=== PATIENT | male | born 1990 | race Caucasian/White ===

== ENCOUNTER 2024-10-31 09:25 | Emergency (ER) | payer SELFPAY ==
[~2024-10-31] VITALS: Ht 188 cm; Wt 111.0 kg
[2024-10-31 10:17] VITALS: BP 129/90
[2024-10-31] MEDS ORDERED: Diph, Acellular Pertussis, Tet 0.5 ML/VIAL (Tdap) SDV IM ONE (10:20)
[2024-10-31] MEDS ORDERED: LIDOcaine HCl 1% (Local Anesth.) 20 ML VIAL STI STA (10:26)
[2024-10-31 10:30] VITALS: BP 128/84
[2024-10-31] MEDS ORDERED: POVIDONE IODINE 0.5 OZ/BTL TOP ONE (10:30)
[2024-10-31] MEDS ORDERED: STERILE WATER 10 ML/VIAL SDV IM ONE (10:40)
[2024-10-31] MEDS ORDERED: ceFAZolin 1 GM/VIAL SDV IM ONE (10:40)
[2024-10-31] MEDS ORDERED: CEPHALEXIN500 M1 PO (10:40)
[2024-10-31 10:46] VITALS: BP 121/74
[2024-10-31 11:01] VITALS: BP 127/86
[2024-10-31 11:15] VITALS: BP 135/94
== END 2024-10-31 11:35 | disposition home or self-care (01) | DRG 605 ==
LOC: ED 09:25
PROC: 0HQKXZZ Repair Right Lower Leg Skin, External Approach (ICD-10-PCS; principal; 2024-10-31)
DX: S81.811A Laceration without foreign body, right lower leg, initial encounter (principal); W17.2XXA Fall into hole, initial encounter
CPT/HCPCS: 90715; J0690

== ENCOUNTER 2024-11-10 07:23 | Emergency (ER) | payer SELFPAY ==
[~2024-11-10] VITALS: Ht 188 cm; Wt 115.0 kg
[~2024-11-10 07:23] MED LIST: CEPHALEXIN500 M1 PO
[2024-11-10 07:40] VITALS: BP 135/74
== END 2024-11-10 07:51 | disposition home or self-care (01) | DRG 950 ==
LOC: ED 07:23
DX: S81.811D Laceration without foreign body, right lower leg, subsequent encounter (principal); X58.XXXD Exposure to other specified factors, subsequent encounter; Z72.0 Tobacco use